=== PATIENT | male | born 1990 | race Caucasian/White ===

== ENCOUNTER 2019-05-31 22:48 | Emergency (ER) | payer OTHER ==
[~2019-05-31] VITALS: Ht 175.3 cm; Wt 77.3 kg
[2019-05-31 23:09] VITALS: BP 129/71
[2019-05-31 23:30] LABS: CLARITY,URINE CLOUDY (Clear); COLOR,URINE YELLOW (Yellow); GLUCOSE, URINE NEGATIVE (Neg); KETONES,URINE NEGATIVE (Neg); LEUKOCYTE ESTERASE ,URINE NEGATIVE (Neg); NITRITES, URINE NEGATIVE (Neg); OCCULT BLOOD,URINE NEGATIVE (Neg); PH,URINE 7.5 (4.8-8.0); PROTEIN,URINE NEGATIVE (Neg); UROBILINOGEN,URINE 0.2 E.U/dL (0.2-1.0)
[2019-05-31] MEDS ORDERED: CefTRIAXone 250MG IM Kit w/LIDOcaine IM ONE (23:30)
[2019-05-31] MEDS ORDERED: azithromycin 250mg tablet PO ONE (23:30)
[2019-05-31 23:35] LABS: UA COLLECTION TYPE CLN CATCH MIDSTREAM
[2019-05-31 23:36] LABS: AMORPHOUS PHOSPHATES 2+; BACTERIA,URINE NONE SEEN /HPF (Neg); MUCUS STRANDS NONE SEEN /LPF (Neg); RBC,URINE NONE SEEN /HPF (0-2); SQUAMOUS EPITHELIAL CELL,UR NONE SEEN /LPF (FEW); WBC,URINE NONE SEEN /HPF (0-4)
[2019-05-31] MEDS ORDERED: penicillin G benzathine 1.2 million unit/2ml syringe IM ONE ×2 (23:45)
[2019-05-31] MEDS ORDERED: ACYC200C PO (23:49)
[2019-06-02 08:09] LABS: RPR Non Reactive (Non Reactive)
== END 2019-06-01 00:21 | disposition home or self-care (01) ==
LOC: ER 22:49
DX: A64 Unspecified sexually transmitted disease (principal)
CPT/HCPCS: 36415; 81001; 86592; 87491; 87591; 96372; 99283; J0561; J0696